=== PATIENT | female | born 1980 | race Asian ===

== ENCOUNTER 2020-01-08 11:22 | Inpatient (IN) | payer SELFPAY ==
[~2020-01-08] VITALS: Ht 157.5 cm; Wt 66.7 kg
--- NOTE | 2020-01-08 11:22 | NUR ---
Placed in room 01 . Placed on monitor technician, blood pressure machine and pulse oximeter. To gown for exam. Side rails up.
--- NOTE | 2020-01-08 11:23 | NUR ---
ER Dr. Tolliver at bedside examining patient.
--- NOTE | 2020-01-08 11:23 | NUR ---
Patient came via EMS. Per paramedics, patient went running into her room mates room due to an asthma attack. She arrived on BiPaP with 20g IV to left wrist. Patient was non-verbal.
[2020-01-08 11:24] VITALS: BP_SYST 137
[2020-01-08] MEDS ORDERED: NACL 0.9% 1,000 ML IV ONE (11:32)
[2020-01-08] MEDS ORDERED: MAGNESIUM SULFATE 50 ML IV ONE (11:45)
[2020-01-08] MEDS ORDERED: EPINEPHrine 1 MG/ML AMP SUBCUT ONE (11:45)
[2020-01-08] MEDS ORDERED: methylPREDNISolone SOD SUCC/PF 62.5 MG/ML VIAL IVP ONE (11:45)
[2020-01-08 11:59] LABS: BASOPHILS # (AUTO) 0.1 K/uL (0.0-0.2); BASOPHILS % (AUTO) 0.6 % (0.0-2.0); EOSINOPHILS # (AUTO) 0.3 K/uL (0.0-0.4); EOSINOPHILS % (AUTO) 2.6 % (0.0-4.0); HEMATOCRIT 36.9 % (36-48); MEAN CORPUSCULAR HEMOGLOBIN 30 pg (27-31); MEAN CORPUSCULAR HGB CONC 33 % (32-36); MEAN CORPUSCULAR VOLUME 92 fL (79.0-98.0); MONOCYTES % (AUTO) 7.8 % (1.7-9.3); NEUTROPHILS # (AUTO) 5.4 K/uL (1.8-7.7); PLATELET COUNT (AUTO) 307 K/uL (130-430); RED CELL DISTRIBUTION WIDTH 13.3 % (9.0-15.0); WHITE BLOOD COUNT (AUTO) 12.8 K/uL (4.8-10.8)
[2020-01-08 12:12] LABS: ANION GAP 14 (5-15); CALCIUM 8.2 mg/dL (8.4-11.0); CHLORIDE 104 mmol/L (98-107); CREATININE 0.85 mg/dL (0.55-1.30); GLUCOSE 170 mg/dL (70-99); SODIUM SERUM 137 mmol/L (136-145); UREA NITROGEN, BLOOD 13 mg/dL (8-21)
[2020-01-08 12:16] LABS: GFR AFRICAN AMERICAN 96 mL/min (>90); POTASSIUM 2.7 mmol/L (3.5-5.1)
[2020-01-08 12:18] LABS: ALANINE AMINOTRANSFERASE 91 U/L (12-78); ALBUMIN 3.8 g/dL (3.4-4.8); ASPARTATE AMINOTRANSFERASE 61 U/L (10-37); TOTAL BILIRUBIN 0.5 mg/dL (0.0-1.0)
[2020-01-08 12:19] LABS: ACETAMINOPHEN < 1 ug/mL (1-30); ALCOHOL, BLOOD < 3 mg/dL (<10)
[2020-01-08] MEDS ORDERED: KCL 20 mEq in 100 mL (PREMIX) 100 ML IV ONE (12:30)
[2020-01-08] MEDS ORDERED: LORazepam 2 MG/ML VIAL IVP ONE (13:15)
--- NOTE | 2020-01-08 13:38 | NUR ---
Patient will be admitted to care of Dr. Brandt. Admitted to medsurg unit. Waiting for room assignment. Belongings list completed. Complete and up to date summary report printed. SBAR report to be given at bedside with opportunity for questions.
--- NOTE | 2020-01-08 13:38 | NUR ---
Medication reconciliation completed with information provided by patient. Any prior medication reconciliation on file was reviewed and corrected.
[2020-01-08] MEDS ORDERED: NACL 0.9% 500 ML IV ONE (13:45)
--- NOTE | 2020-01-08 15:15 | NUR ---
Transfer to [facility]. EMT present. IV present no signs or symptoms of infiltration.
--- NOTE | 2020-01-08 15:29 | NUR ---
ADMISSION NOTE Received patient from ER via michael, received report from YESENIA GRAHAM. Patient admitted with diagnosis of ASTHMA. Patient oriented to hospital routine, call light, toileting and safety-patient verbalized understanding.
[2020-01-08] MEDS ORDERED: ALBUTEROL SULFATE 0.083% 2.5 MG/3 ML VIAL.NEB INH PRN (15:45)
[2020-01-08] MEDS ORDERED: IPRATROPIUM BROM 0.5 MG/2.5 ML VIAL.NEB (ATROVENT) INH PRN (15:45)
--- NOTE | 2020-01-08 15:48 | NUR ---
CONSULTATION PAGED REASON FOR CONSULTATION:ASTHMA WAS CONSULT CALLED?Y PERSON WHO WAS NOTIFIED:'S PAGERS PAGED CONSULTING PHYSICIAN:ANN HERNANDEZ ADMISSIONS MANAGER SPECIALTY:PULMONARY ADMISSIONS MANAGER PHONE NUMBER:[phone] REQUESTING PHYSICIAN:JESSICA MERRITT
[2020-01-08] MEDS: cefTRIAXone 1 GM in D5W 50 ML IV SCH (16:00)
--- NOTE | 2020-01-08 16:00 | NUR ---
ROUTINE MEDS ROUTINE MEDS ADMINISTERED ORDERED PER MD, EDUCATION GIVEN, PT VERBALIZED UNDERSTANDING. TOLERATED WELL. CONTINUE TO MONITOR.
[2020-01-08 16:13] VITALS: BP_SYST 126
[2020-01-08] MEDS: AZITHROMYCIN 500 MG in NS 250 ML IV SCH (16:45)
--- NOTE | 2020-01-08 16:45 | NUR ---
ROUTINE MEDS ROUTINE MEDS ADMINISTERED ORDERED PER MD, EDUCATION GIVEN, PT VERBALIZED UNDERSTANDING. TOLERATED WELL. CONTINUE TO MONITOR.
[2020-01-08 16:57] LABS: BARBITURATE, URINE NEGATIVE (NEG <=200); BENZODIAZEPINE, URINE POSITIVE (NEG <=150); CANNABINOID, URINE NEGATIVE (NEG <=50); COCAINE, URINE NEGATIVE (NEG <=150); METHAMPHETAMINES SCREEN,URINE NEGATIVE (NEG <=500); OPIATE, URINE NEGATIVE (NEG <=100); PHENCYCLIDINE SCREEN,URINE NEGATIVE (NEG <=25); URINE AMPHETAMINE NEGATIVE (NEG <=500); URINE METHADONE NEGATIVE (NEG <=200); URINE OXYCODONE SCREEN NEGATIVE (NEG <=100)
[2020-01-08 16:58] LABS: UR TRICYCLIC ANTIDEPRESSANTS NEGATIVE (NEG <=300); URINE PROPOXYPHENE SCREEN NEGATIVE (NEG <=300)
[2020-01-08] MEDS ORDERED: PANTOPRAZOLE SODIUM 40 MG TAB PO ONE (18:00)
[2020-01-08 18:05] VITALS: BP_SYST 104
--- NOTE | 2020-01-08 19:00 | NUR ---
PT STARTED HYPERVENTILATING STATING THAT SHE COULD NOT BREATHE. O2 WAS 97% ON ROOM AIR. HEART RATE AT 105. RESPIRATORY THERAPIST ON STANDBY. HELPED CALM PT DOWN AND SLOW DOWN HER BREATHING. CALLED DR. OLIVARES FOR ORDERS. RECEIVED ORDERS, VERIFIED, AND CARRIED OUT.
[2020-01-08] MEDS ORDERED: LORazepam 1 MG TABLET PO ONE (19:15)
--- NOTE | 2020-01-08 19:21 | NUR ---
ADMINISTERED ATIVAN TO PT. PT CALMED DOWN AND WAS CRYING. PRAYED WITH PT TO HELP CALM DOWN. PT STATED SHE WAS FEELING BETTER, BREATHING SLOWED DOWN. O2 AT 97%. NO ACUTE DISTRESS NOTED. ALL NEEDS MET. CALL LIGHT IN REACH. WILL ENDORSE TO NOC NURSE.
[2020-01-08] MEDS ORDERED: LORazepam 1 MG TABLET ONE (19:24)
[2020-01-08] MEDS: IPRATROPIUM BROM 0.5 MG/2.5 ML VIAL.NEB (ATROVENT) INH SCH (19:30)
[2020-01-08] MEDS: ALBUTEROL SULFATE 0.083% 2.5 MG/3 ML VIAL.NEB INH SCH (19:30)
--- NOTE | 2020-01-08 19:30 | NUR ---
CLOSING NOTES PT AWAKE, ALERT, AND ORIENTED. RESPIRATORY THERAPIST AT BEDSIDE. VITAL SIGNS STABLE. IV LINE INTACT AND PATENT, NO SIGNS OF INFILTRATION NOTED, FLUIDS RUNNING ORDERED PER MD, SCD'S ON AND IN PLACE. BED LOCKED AND IN LOWEST POSITION. ALL NEEDS MET. CALL LIGHT IN REACH. FALL, ASPIRATION, AND ISOLATION PRECAUTIONS IN PLACE. ENDORSED CARE TO CECE GRAHAM.
--- NOTE | 2020-01-08 19:30 | NUR ---
Opening notes Received report. Patient is resting in bed, no signs of distress noted. Breathing even and unlabored on 2 L NC. IV patent and intact, infusing fluids. No needs at this time. Call light with the patient. safety precautions in place.
--- NOTE | 2020-01-08 21:30 | NUR ---
Medications given. Educated the action and side effects of medication. Patient verbalized understanding and tolerated well. Provided patient with shampoo and lotion. No other needs. No signs of distress noted. Breathing even and unlabored on 2 L NC. Call light with the patient. Safety precautions in place.
[2020-01-08 21:32] VITALS: BP_SYST 101
[2020-01-08] MEDS: methylPREDNISolone SOD SUCC/PF 62.5 MG/ML VIAL IVP SCH (21:32)
--- NOTE | 2020-01-09 | NUR ---
RN rounds Patient sleeping at this time. No signs of distress noted. Breathing even and unlabored on 2 L NC. No needs at this time. Call light with the patient. Safety precautions in place.
[2020-01-09] MEDS: IPRATROPIUM BROM 0.5 MG/2.5 ML VIAL.NEB (ATROVENT) INH SCH ×4 (01:00→19:30)
[2020-01-09] MEDS: ALBUTEROL SULFATE 0.083% 2.5 MG/3 ML VIAL.NEB INH SCH ×4 (01:00→19:30)
--- NOTE | 2020-01-09 02:48 | NUR ---
RN rounds Patient is resting in bed, no signs of distress noted. Breathing even and unlabored, on room air. No needs. Call light with the patient. Safety precautions in place.
--- NOTE | 2020-01-09 04:45 | NUR ---
RN rounds Patient resting in bed. No signs of distress noted. Breathing even and unlabored on room air. No SOB noted. No needs at this time. Call light with the patient. Safety precautions in place.
[2020-01-09 05:18] VITALS: BP_SYST 107
[2020-01-09] MEDS: methylPREDNISolone SOD SUCC/PF 62.5 MG/ML VIAL IVP SCH ×2 (05:49→13:59)
--- NOTE | 2020-01-09 06:38 | NUR ---
Closing notes Patient resting in bed, no signs of distress noted. Breathing even and unlabored on room air. O2 sat 100%. IV patent and intact, no signs of infiltration noted. Patient concerned about hospital bill due to not having insurance. Will contact case management in regards to insurance. all needs met throughout the shift. call light with the patient. Safety precautions in place. will endorse care to day shift RN. Addendum: 01/09/20 at 0644 by Domenica Lau RN Additional notes: Will contact case management and/or medical social consultant.
--- NOTE | 2020-01-09 07:15 | NUR ---
OPENING NOTES PT RESTING IN BED, CHEST RISE AND FALL NOTED. NONLABORED BREATHING NOTED ON ROOM AIR, EASILY AWAKEN. PT DENIES PAIN AND SOB AT THIS TIME. IV LINE INTACT AND PATENT, NO SIGNS OF INFILTRATION NOTED. SCD'S ON AND IN PLACE. BED LOCKED AND IN LOWEST POSITION. ALL NEEDS MET. CALL LIGHT IN REACH. FALL AND ASPIRATION PRECAUTIONS IN PLACE. CONTINUE TO MONITOR.
[2020-01-09 08:00] VITALS: BP_SYST 106
--- NOTE | 2020-01-09 08:00 | NUR ---
PT HYPERVENTILATING. CHECKED VITALS, VITALS SIGNS STABLE O2 AT 96% ON ROOM AIR. STATED TO PT TO SLOW DOWN BREATHING, AND BREATHE IN AND OUT. PT FELT BETTER, STATED SHE WAS FEELING "EMOTIONAL PAIN" BUT DENIED ANY PHYSICAL PAIN. ASKED PT WHAT CAUSED HYPERVENTILATING EPISODE, STATED THAT SHE WAS TALKING ABOUT HER PROBLEMS ON THE PHONE AND THEN SHE COULD NOT BREATHE. STATED THAT SHE WAS HAVING ISSUES WITH HER [employer] AND FINANCIAL PROBLEMS SINCE SHE HAS NO INSURANCE. WILL TALK TO MD TO CONSULT WITH [employer].
[2020-01-09] MEDS: cefTRIAXone 1 GM in D5W 50 ML IV SCH (08:15)
--- NOTE | 2020-01-09 08:15 | NUR ---
Pt. refused breathing Tx, stated she did not need it at that time and will call for one if she sees fit. No acute resp distress noted, SANTOS Carmona present and aware.
[2020-01-09] MEDS: PANTOPRAZOLE SODIUM 40 MG TAB PO SCH (08:30)
--- NOTE | 2020-01-09 08:30 | NUR ---
ROUTINE MEDS ROUTINE MEDS ADMINISTERED ORDERED PER MD, EDUCATION GIVEN, TOLERATED WELL. NO ACUTE DISTRESS NOTED. ALL NEEDS MET. PT STATED FEELING BETTER, VITAL SIGNS STABLE. CALL LIGHT IN REACH, FALL AND ASPIRATION PRECAUTIONS IN PLACE CONTINUE TO MONITOR.
[2020-01-09] MEDS: AZITHROMYCIN 500 MG in NS 250 ML IV SCH (08:45)
--- NOTE | 2020-01-09 09:30 | NUR ---
SPOKE TO DR. OLIVARES REGARDING PT'S STATUS, HYPERVENTILATING EPISODES, AND LAB VALUES. GAVE RECOMMENDATION FOR REPEAT BMP AND WEB CONTENT EDITOR CONSULT. OK TO ORDER WEB CONTENT EDITOR CONSULT. RECEIVED ORDERS, VERIFIED, AND CARRIED OUT.
--- NOTE | 2020-01-09 11:00 | NUR ---
ROUNDS PT AWAKE AND ALERT. NO ACUTE DISTRESS NOTED. ALL NEEDS MET. CALL LIGHT IN REACH. CONTINUE TO MONITOR.
[2020-01-09 12:00] VITALS: BP_SYST 136
--- NOTE | 2020-01-09 12:07 | NUR ---
PER TECH MONITOR REJI, STATED THAT FROM [employer]OOKER HAND, PT WAS SPEAKING TO FAMILY MEMBER AND STOPPED TALKING, WENT INTO PT'S ROOM AND WAS FOUND UNRESPONSIVE. PULSES PALPATED ON UPPER AND LOWER EXTREMITIES, VITAL SIGNS STABLE BUT VERY HARD TO AROUSE. CALLED FOR RAPID RESPONSE.
--- NOTE | 2020-01-09 12:08 | NUR ---
Responded to rapid response. Pt. found unresponsive but breathing with vitals in normal range. SpO2 reading 95% Pt. was very hard to arouse and was not able to answer questions upon arrival. ABG obtained. Pt. eventually became less lethargic and began to answer questions, no other actions taken.
--- NOTE | 2020-01-09 12:12 | NUR ---
RAPID RESPONSE TIME START. PT HARD TO AROUSE, CALLING HER NAME BUT NOT RESPONDING. VITAL SIGNS STABLE. UPPER AND LOWER BILATERAL PULSES FELT.
--- NOTE | 2020-01-09 12:15 | NUR ---
PAGED DR OLIVARES STAT RAPID RESPONSE
--- NOTE | 2020-01-09 12:30 | NUR ---
PT STARTED TO ANSWER QUESTIONS AND BECAME MORE AROUSABLE. VITAL SIGNS STABLE THROUGHOUT ALL OF RAPID RESPONSE EPISODE. STAYED WITH PT AND WENT WITH PATIENT TO CT SCAN.
[2020-01-09] MEDS: NALOXONE HCL 0.4 MG/ML AMP (NARCAN) IVP ONE ×2 (12:35→13:36)
[2020-01-09] MEDS ORDERED: NALOXONE HCL 2 MG/2 ML SYR ONE (12:43)
--- NOTE | 2020-01-09 12:48 | NUR ---
CONSULT PSYCH ANXIETY/DEPRESSION DR NATHAN [phone] S/W BRIDGER ELLIS
--- NOTE | 2020-01-09 14:01 | NUR ---
SS NOTES/DCP/SELF-PAY: INSTITUTION LIBRARIAN spoke with patient over the phone who confirmed demographic information. Pt is a 39 y/o single female who came in via ED for asthma attack. Pt lives with a roommate and pt is independent on all ADL's and no indication for DME. Pt has anxiety and is not seeing a therapist for any mental health needs. Pt also denies substance use/abuse. Pt verbalized concern about not having insurance. Pt states she makes roughly $2000/month and wants to be screen by [employer] to see if she qualifies for [facility]. INSTITUTION LIBRARIAN emailed [facility] for [facility] and provided patient with local [facility], mental health and substance use resources. INSTITUTION LIBRARIAN educated patient on the importance of a follow-up care after discharge, pt verbalized understanding. No further SS needs identified, but will remain available.
--- NOTE | 2020-01-09 14:35 | NUR ---
SPOKE TO PT ABOUT TRANSFER TO ICU, EDUCATED PT THE IMPORTANCE OF MONITORING HER DUE TO EVENTS HAPPENING AND THE RAPID RESPONSE BEING CALLED. PT VERBALIZED UNDERSTANDING AND STATED " A PATIENT I HAVE A RIGHT TO REFUSE." SANTOS CASTRO WITNESS. PAGED DR. OLIVARES, AWAITING CALL BACK.
--- NOTE | 2020-01-09 15:02 | NUR ---
PAGED DR. OLIVARES REGARDING ORDERS, AWAITING CALL BACK.
--- NOTE | 2020-01-09 15:05 | NUR ---
SPOKE TO DR. OLIVARES AT NURSE'S STATION, INFORMED MD THAT PT REFUSED GOING TO THE ICU DESPITE GIVEN EDUCATION. ALSO INFORMED MD THAT PT IS REFUSING SOME MEDICATIONS. RECEIVED ORDERS, VERIFIED, AND CARRIED OUT.
[2020-01-09 16:00] VITALS: BP_SYST 96
--- NOTE | 2020-01-09 16:00 | NUR ---
VITAL SIGNS STABLE. NO ACUTE DISTRESS NOTED. ALL NEEDS MET. CALL LIGHT IN REACH. CONTINUE TO MONITOR.
--- NOTE | 2020-01-09 19:00 | NUR ---
CLOSING NOTES PT AWAKE, ALERT, AND ORIENTED. NONLABORED BREATHING NOTED ON ROOM AIR. PT DENIES PAIN AND SOB AT THIS TIME. IV LINE INTACT AND PATENT, NO SIGNS OF INFILTRATION NOTED. SCD'S ON AND IN PLACE. BED LOCKED AND IN LOWEST POSITION. ALL NEEDS MET. CALL LIGHT IN REACH. FALL AND ASPIRATION PRECAUTIONS IN PLACE. ENDORSED CARE TO SANTOS ZHAO.
--- NOTE | 2020-01-09 19:30 | NUR ---
Opening notes Received report. Patient is resting in bed on cellphone, no signs of distress noted. Breathing even and unlabored on room air. IV patent and intact, no signs of infiltration noted. updated patient on plan of care. Patient verbalized understanding. No other needs. call light with the patient. Safety precautions in place.
[2020-01-09 20:00] VITALS: BP_SYST 100
--- NOTE | 2020-01-09 21:15 | NUR ---
RN rounds Patient resting in bed on phone. No signs of distress noted. Breathing even and unlabored. No needs at this time. Patient wondering when she will go home. Informed patient that their is no discharge orders yet, but will update patient of any new orders. Patient verbalized understanding.
--- NOTE | 2020-01-09 23:05 | NUR ---
RN rounds Patient is resting in bed, no signs of distress noted. Breathing even and unlabored. No needs at this time. Call light with the patient. Safety precautions in place.
[2020-01-10] MEDS: IPRATROPIUM BROM 0.5 MG/2.5 ML VIAL.NEB (ATROVENT) INH SCH ×3 (01:00→13:00)
[2020-01-10] MEDS: ALBUTEROL SULFATE 0.083% 2.5 MG/3 ML VIAL.NEB INH SCH ×3 (01:00→13:00)
--- NOTE | 2020-01-10 02:00 | NUR ---
RN rounds Patient resting in bed. No signs of distress noted. Breathing even and unlabored. No needs. call light with the patient. Safety precautions in place.
[2020-01-10 04:00] VITALS: BP_SYST 103
--- NOTE | 2020-01-10 04:18 | NUR ---
RN rounds Patient is resting in bed, no signs of distress noted. Breathing even and unlabored on room air. O2 sat 97%. call light with the patient. Safety precautions in place.
--- NOTE | 2020-01-10 06:50 | NUR ---
Closing notes Patient resting in bed, no signs of distress noted. Breathing even and unlabored on room air. O2 sat 97%. IV patent and intact, no signs of infiltration noted.Patient moved to room 103 B. all needs met throughout the shift. call light with the patient. Safety precautions in place. will endorse care to day shift RN.
--- NOTE | 2020-01-10 07:27 | NUR ---
OPENING NOTE Patient resting in the bed. No acute distress. AAO x 4. Denied of pain. Skin warm and dry to touch. SL intact to right hand, no redness, no swelling, patent. Discussed the safety issue, use call light when needs help, and plan of care, verbally understanding. Safety measure maintained. Call light within reached. Bed locked in low position, side rails up. Refused bed alarm, risk and benefit explained, verbally understanding. Will continue to monitor.
[2020-01-10 08:09] VITALS: BP_SYST 108
[2020-01-10] MEDS: PANTOPRAZOLE SODIUM 40 MG TAB PO SCH (08:24)
--- NOTE | 2020-01-10 09:40 | NUR ---
ROUND Patient sitting in the chair at bedside. No acute distress. Safety measure maintained. Continue to monitor.
[2020-01-10] MEDS: AZITHROMYCIN 500 MG in NS 250 ML IV SCH (10:00)
--- NOTE | 2020-01-10 11:00 | NUR ---
REFUSED ZITHROMAX Patient refused Zithromax IVPB, risk and benefit explained, verbally understanding. Per patient does want IV medication, medication by mouth is okay. Will notify Dr. Brandt and continue to monitor.
--- NOTE | 2020-01-10 11:22 | NUR ---
SEEN AND EXAMINED BY JESSICA CARTAGENA Reported to Dr. Brandt, the patient refused IV antibiotic per patient PO med is okay for her. Informed to Dr. Brandt, patient"s K=2.7 in ER and K-rider 20mEq IV x 1 given and no more lab test. Dr. Brandt ordered BMP STAT.
[2020-01-10 11:30] VITALS: BP_SYST 153
[2020-01-10] MEDS ORDERED: DOXY100T2 PO (11:36)
[2020-01-10] MEDS ORDERED: PRED20TA PO (11:36)
--- NOTE | 2020-01-10 11:47 | NUR ---
PATIENT REFUSED LAB TEST, DR. OLIVARES IN THE UNIT AND MAKE AWARE.
--- NOTE | 2020-01-10 11:49 | NUR ---
Dietitian Recommendations *Continue regular diet per MD *Encourage pt to increase PO intake. Please see Nutritional Assessment for details. BEV, RD
--- NOTE | 2020-01-10 12:44 | NUR ---
DISCHARGE Called and received the call back from Gatito Alberts regarding the discharge home. Per Dr. Diana, the patient okay to discharge home.
[2020-01-10 12:55] VITALS: BP_SYST 107
--- NOTE | 2020-01-10 13:55 | NUR ---
D/C Patient Patient given medication reconciliation form and D/C instructions. Exit Care provided. Patient verbalized understanding. MD discussed with patient the results and treatment provided. Ambulatory with steady gait for discharge to home. Patient in stable condition, ID band removed. IV catheter removed, intact and dressing applied, no active bleeding. E-Rx of Doxycycline and Prednisone ready from [facility]. Patient educated on disease management and medication regimen, verbally understanding. All belongings sent with patient.
== END 2020-01-10 13:55 | disposition home or self-care (01) | DRG 202 ==
LOC: EDBD 11:22 → SED 11:22 → SMU 13:36 → EEVIPCON 13:36 → SMU 15:28 → SIC 01-09 14:31 → STU 01-09 15:19
PROVIDERS: ADMIT Internal Medicine Hospice and Palliative Medicine; ATTEND Internal Medicine Hospice and Palliative Medicine
DX: J45.901 Unspecified asthma with (acute) exacerbation (principal); J18.9 Pneumonia, unspecified organism; F41.9 Anxiety disorder, unspecified; Z20.828 Contact with and (suspected) exposure to other viral communicable diseases
CPT/HCPCS: 36415; 36600; 70450-TC; 71045; 80053; 80307; 82803-TC; 82962; 85025; 93005; 94640; 94760; 96365; 96366; 96367; 96372; 96375; 99291; G0378; G0480; G0481; G0482; J0456; J0696; J2060; J2310; J2930; J3480; J7040; J7050; J7060; J7613; U0003-CS